=== PATIENT | female | born 1965 | race Caucasian/White ===

== ENCOUNTER 2016-06-27 14:23 | Emergency (ER) | payer OTHER ==
[2016-06-27 14:35] VITALS: BP 111/68
--- NOTE | 2016-06-27 15:02 | UC ---
Lower Extremity/Ankle HPI - HPI Summary HPI Summary: INTERMITTENT LLE PAIN AND SWELLING OVER THE PAST SEVERAL WEEKS. PT DENIES FEVER , SOB, CP OR NAUSEA. NO PERSONAL OR FAMILY H/O BLOOD CLOTS OR BLEEDING DISORDER. DENIES ANY TRAUMA. NO RECENT TRAVEL ALTHOUGH HAS BEEN "SITTING INSIDE ALL WINTER". - History of Current Complaint Chief Complaint: UCLowerExtremity Stated Complaint: SWOLLEN LEG Time Seen by Provider: 06/27/16 14:47 Hx Obtained From: Patient Hx Last Menstrual Period: june 2015 Onset/Duration: Gradual Onset, Lasting Weeks, Still Present Severity Initially: Moderate Severity Currently: Moderate Pain Intensity: 10 - 10/10 PAIN WITH PALPATION OF LEFT CALF Pain Scale Used: 0-10 Numeric Aggravating Factor(s): Standing, Ambulation Alleviating Factor(s): Nothing Able to Bear Weight: Yes - WITH CRUTCHES - Allergies/Home Medications Allergies/Adverse Reactions: Allergies Allergy/AdvReac Type Severity Reaction Status Date / Time Aspirin Allergy Swelling Verified 06/27/16 14:28 Bee Venom Allergy Hives Verified 12/27/13 19:24 Codeine Allergy Anxiety Verified 12/27/13 19:23 PMH/Surg Hx/FS Hx/Imm Hx Respiratory History Of: Reports: Asthma - Surgical History Surgical History: Yes Surgery Procedure, Year, and Place: tubal - Family History Known Family History: Negative: Blood Disorder Family History: NO FAM H/O BLOOD CLOTS - Social History Alcohol Use: None Substance Use Type: None Smoking Status (MU): Former Smoker Type: Cigarettes Length of Time of Smoking/Using Tobacco: quit 2015 - Immunization History Most Recent Influenza Vaccination: none Review of Systems Constitutional: Negative Skin: Other - LLE MOTTLED Respiratory: Negative Cardiovascular: Negative Gastrointestinal: Negative Musculoskeletal: Decreased ROM, Edema, Myalgia All Other Systems Reviewed And Are Negative: Yes Physical Exam Triage Information Reviewed: Yes Appearance: Well-Appearing, Well-Nourished, Pain Distress - SEVERE PAIN WITH PALPATION OF LEFT CALF Vital Signs: Initial Vital Signs Temp 98.8 F 06/27/16 14:30 Pulse 89 06/27/16 14:30 Resp 16 06/27/16 14:30 BP 111/68 06/27/16 14:30 Pulse Ox 99 06/27/16 14:30 Vital Signs Reviewed: Yes Eyes: Positive: Conjunctiva Clear ENT: Positive: Hearing grossly normal Neck: Positive: Supple Respiratory Exam: Normal Cardiovascular Exam: Normal Cardiovascular: Positive: Pulses Normal - 2+ DP PULSES Abdomen Description: Positive: Soft Musculoskeletal: Positive: ROM Limited @ - LEFT KNEE AND ANKLE, Edema @ - LLE SWOLLEN, FIRM UP TO KNEE., Other: - EXQUISITELY TTP LEFT CALF. NEG HOMANS. CALF CIRCUMFERENCE: RIGHT 42CM, LEFT 46CM Lower Extremity Course/Dx - Differential Dx/Diagnosis Differential Diagnosis/HQI/PQRI: Compartment Syndrome, DVT, Fracture (Closed), Phlebitis Provider Diagnoses: LLE SWELLING/CALF TENDERNESS - Physician Notifications Discussed Patient Care With: SOPHIA DRISCOLL Time Discussed With Above Provider: 15:14 - TO [facility] PR[facility] CAR Discharge - Discharge Plan Condition: Stable Disposition: AGAINST MEDICAL ADVICE Referrals: Curly Coker MD [Primary Care Provider] -
== END 2016-06-27 15:08 | disposition left against medical advice (07) ==
LOC: UCEAST 14:23
DX: M79.89 Other specified soft tissue disorders (principal); M79.662 Pain in left lower leg; Z88.6 Allergy status to analgesic agent; Z88.5 Allergy status to narcotic agent; Z87.891 Personal history of nicotine dependence
CPT/HCPCS: 99213; G0463

== ENCOUNTER 2016-06-27 15:35 | Emergency (ER) | payer OTHER ==
[2016-06-27 15:44] VITALS: BP 118/64
--- NOTE | 2016-06-27 16:12 | ED ---
Lower Extremity - HPI Summary HPI Summary: 51F presents with left calf pain for a week. She said she was working on the house when she noticed that she felt a pulling sensation. She says since then she has noticed swelling her calf and it has spread into her knee. She states that she noticed some redness to the area and warmth. She states she has also noticed that her left foot feels colder than her right. She does not have a history of blood clots, personal history of [place], or recent travel. She does not work. She denies any family history of blood clots. She is a former smoker. She denies any chest pain or SOB. - History of Current Complaint Chief Complaint: EDExtremityLower Stated Complaint: POSSIBLE DVT IN LT LEG/CONV CARE Time Seen by Provider: 06/27/16 16:00 Hx Last Menstrual Period: june 2015 Pain Intensity: 9 - Allergies/Home Medications Allergies/Adverse Reactions: Allergies Allergy/AdvReac Type Severity Reaction Status Date / Time Aspirin Allergy Swelling Verified 06/27/16 14:28 Bee Venom Allergy Hives Verified 12/27/13 19:24 Codeine Allergy Anxiety Verified 12/27/13 19:23 PMH/Surg Hx/FS Hx/Imm Hx Endocrine/Hematology History: Denies: Hx Anticoagulant Therapy Respiratory History: Reports: Hx Asthma - Surgical History Surgery Procedure, Year, and Place: tubal Infectious Disease History: No Infectious Disease History: Denies: Traveled Outside the [place] in Last 30 Days - Family History Known Family History: Negative: Blood Disorder Family History: NO FAM H/O BLOOD CLOTS - Social History Alcohol Use: None Substance Use Type: Reports: None Smoking Status (MU): Former Smoker Type: Cigarettes Length of Time of Smoking/Using Tobacco: quit 2015 Review of Systems Negative: Fever Negative: Chest Pain Negative: Shortness Of Breath Positive: Myalgia - left calf, Edema - left calf All Other Systems Reviewed And Are Negative: Yes Physical Exam Triage Information Reviewed: Yes Vital Signs On Initial Exam: Initial Vitals Temp Pulse Resp BP Pulse Ox 98.7 F 91 18 118/64 100 06/27/16 15:38 06/27/16 15:38 06/27/16 15:38 06/27/16 15:38 06/27/16 15:38 Vital Signs Reviewed: Yes Appearance: Positive: Well-Appearing Skin: Positive: Warm, Dry Head/Face: Positive: Normal Head/Face Inspection Eyes: Positive: Normal, Conjunctiva Clear ENT: Positive: Normal ENT inspection, Pharynx normal, TMs normal Respiratory/Lung Sounds: Positive: Clear to Auscultation, Breath Sounds Present Cardiovascular: Positive: Normal, RRR Musculoskeletal: Positive: Strength/ROM Intact - of left knee and ankle, Edema Left, Other - erythema present on posteroir aspect of calf, tenderness to palpation of calf, good pulses, sensation grossly intact, capillary refill< 2secs. Negative: Wesley Sign Left Diagnostics - Vital Signs Vital Signs Temp Pulse Resp BP Pulse Ox 06/27/16 15:38 98.7 F 91 18 118/64 100 - Laboratory Lab Statement: Any lab studies that have been ordered have been reviewed, and results considered in the medical decision making process. - Ultrasound No standard instances Ultrasound Interpretation: Positive (See Comments) - IMPRESSION: 1. SLIGHTLY LIMITED EXAM OF THE CALF, NO EVIDENCE FOR DEEP VENOUS THROMBOSIS. 2. RUPTURED FIGUEROA'S CYST. Ultrasound Interpretation Completed By: Radiologist Lower Extremity Course/Dx - Course Course Of Treatment: 51F presents with swelling of left calf for a week, no risk factors for DVT, sent from for u/s to rule out DVT, no exam mild edema present with erythema present on calf and tender to touch, appears to have cellulitis of left calf, u/s shows no DVT but does show ruptured figueroa cyst, pain could be due to ruptured figueroa cyst or cellulitis, explained results to patient, will treat as cellulitis, told to take ibuprofen for pain, patient understands and agrees with plan - Diagnoses Differential Diagnosis/HQI/PQRI: Positive: Cellulitis, DVT, Sprain, Strain Provider Diagnoses: Cellulitis of left leg, Ruptured Bakers cyst Discharge - Discharge Plan Condition: Good Disposition: HOME Prescriptions: Cephalexin CAP* [Keflex CAP*] 500 mg PO QID #39 cap Patient Education Materials: Cellulitis (ED) Referrals: Curly Coker MD [Primary Care Provider] - Additional Instructions: Take Keflex 4 times a day for 10 days, first dose given in ED Take tyenlol or ibuprofen every 6 hours for pain Elevate extremity, place ice on area Follow up with primary within 3 days Return to ED if develop fever, area of redness spreads, numbness or any new or worsening symptoms
[2016-06-27] MEDS ORDERED: Cephalexin CAP* 500 MG PO ONE (16:13)
[2016-06-27] MEDS ORDERED: Ketorolac INJ* 60 MG/2 ML VIAL IM ONE (16:15)
--- NOTE | 2016-06-27 16:52 | RAD ---
INDICATION: Left calf pain and swelling. COMPARISON: There are no prior studies available for comparison. TECHNIQUE: Multiple real-time, color flow and Doppler tracings of the left lower extremity were obtained. FINDINGS: The common femoral, femoral, profunda femoral and popliteal veins all demonstrate normal compressibility, augmentation with compression and phasic response with respiration. The posterior tibial veins demonstrate normal compressibility and augmentation with compression. The peroneal veins were not visualized. There is a complex Hurtado's cyst measuring 6.7 x 4.8 x 2.8 cm with fluid tracking inferior from the cyst most consistent with a ruptured Hurtado's cyst. IMPRESSION: 1. SLIGHTLY LIMITED EXAM OF THE CALF, NO EVIDENCE FOR DEEP VENOUS THROMBOSIS. 2. RUPTURED HURTADO'S CYST.
== END 2016-06-27 17:05 | disposition home or self-care (01) ==
LOC: ED 15:35
DX: L03.116 Cellulitis of left lower limb (principal); M66.0 Rupture of popliteal cyst; Z87.891 Personal history of nicotine dependence
CPT/HCPCS: 96372; 99282; A9270-GY; J1885

== ENCOUNTER 2017-02-17 13:08 | Emergency (ER) | payer MEDICAID, OTHER ==
[2017-02-17 13:22] VITALS: BP 109/72
--- NOTE | 2017-02-17 14:13 | UC ---
Ear Complaint HPI - HPI Summary HPI Summary: 52 yo female with bilateral ear being plugged x days Has left ear pain no fever/chills no URI symptoms - History of Current Complaint Chief Complaint: UCEar Stated Complaint: PLUGGED EARS Time Seen by Provider: 02/17/17 13:26 Hx Obtained From: Patient Hx Last Menstrual Period: june 2015 Onset/Duration: Gradual Onset, Lasting Weeks Severity Initially: Mild Severity Currently: Mild Pain Intensity: 4 Pain Scale Used: 0-10 Numeric Aggravating Factors: Nothing Alleviating Factors: Nothing Associated Signs/Symptoms: Positive: Hearing Loss - Allergies/Home Medications Allergies/Adverse Reactions: Allergies Allergy/AdvReac Type Severity Reaction Status Date / Time Aspirin Allergy Swelling Verified 02/17/17 13:22 Bee Venom Allergy Hives Verified 02/17/17 13:22 Codeine Allergy Anxiety Verified 02/17/17 13:22 Home Medications: Home Medications Pseudophed 1 tab PO DAILY PRN 02/17/17 [History Confirmed 02/17/17] PMH/Surg Hx/FS Hx/Imm Hx Previously Healthy: Yes Other History Of: Negative For: Anticoagulant Therapy - Surgical History Surgical History: Yes Surgery Procedure, Year, and Place: tubal - Family History Known Family History: Positive: Hypertension Negative: Cardiac Disease, Diabetes, Blood Disorder Family History: NO FAM H/O BLOOD CLOTS - Social History Alcohol Use: None Substance Use Type: None Smoking Status (MU): Former Smoker Type: Cigarettes Amount Used/How Often: 3 cigs per day Length of Time of Smoking/Using Tobacco: quit 2016 Have You Smoked in the Last Year: Yes Household Exposure Type: Cigarettes - Immunization History Most Recent Influenza Vaccination: none Review of Systems Constitutional: Negative Skin: Negative Eyes: Negative ENT: Ear Ache Respiratory: Negative Cardiovascular: Negative Gastrointestinal: Negative Genitourinary: Negative Motor: Negative Neurovascular: Negative Musculoskeletal: Negative Neurological: Negative Psychological: Negative Is Patient Immunocompromised?: No All Other Systems Reviewed And Are Negative: Yes Physical Exam Triage Information Reviewed: Yes Appearance: Well-Appearing, No Pain Distress, Well-Nourished Vital Signs: Initial Vital Signs Temp 96.9 F 02/17/17 13:18 Pulse 68 02/17/17 13:18 Resp 18 02/17/17 13:18 BP 109/72 02/17/17 13:18 Pulse Ox 100 02/17/17 13:18 Vital Signs Reviewed: Yes Eyes: Positive: Conjunctiva Clear ENT: Positive: Other: - no tragal tenderness. Negative: Hearing grossly normal , Nasal congestion, TMs normal - unable to visualize, Tonsillar swelling, Tonsillar exudate, Muffled/hoarse voice Neck: Positive: Supple, Nontender, No Lymphadenopathy Respiratory: Positive: Lungs clear, Normal breath sounds, No respiratory distress, No accessory muscle use Cardiovascular: Positive: RRR Musculoskeletal: Positive: ROM Intact, No Edema Neurological: Positive: Alert, Muscle Tone Normal Psychological Exam: Normal Skin Exam: Normal Ear Complaint Course/Dx - Course Course Of Treatment: after flush rigth TM bulging but not red/left TM red and bulging - Differential Dx/Diagnosis Provider Diagnoses: bilateral cerumen impaction. right serous otitis media. left otitis media Discharge - Discharge Plan Condition: Stable Disposition: HOME Prescriptions: Amoxicillin PO (*) [Amoxicillin 875 MG (*)] 875 mg PO BID #20 tab Patient Education Materials: Cerumen Impaction (ED), Otitis Media (ED) Referrals: Curly Coker MD [Primary Care Provider] - 2 Weeks (see as planned 03/04) Additional Instructions: recheck sooner for worsening symptoms
== END 2017-02-17 14:20 | disposition home or self-care (01) ==
LOC: UCEAST 13:08
DX: H61.23 Impacted cerumen, bilateral (principal); H66.92 Otitis media, unspecified, left ear; H65.91 Unspecified nonsuppurative otitis media, right ear
CPT/HCPCS: 99213; G0463